=== PATIENT | female | born 1950 | race Caucasian/White ===

== ENCOUNTER → 2019-08-22 15:50 | Outpatient (CLI) | payer BC, SELFPAY ==
--- NOTE | 2019-08-22 15:57 | XR_ITS ---
PROCEDURE: XR CHEST 2V CLINICAL HISTORY: FEVER,CHILLS,COUGH COMPARISON: CXR CHEST(2 VIEWS-NOT PORTABLE) from 03/18/2016 FINDINGS: There is cardiomegaly without failure. Patchy infiltrate is in both lower lung. Left hilum is somewhat may be due overlying vascularity and may be confirmed with follow-up. No acute bony abnormalities. IMPRESSION: Bilateral lower lobe infiltrates with mild cardiomegaly Dictated by: Dirk Redmond MD 08/22/2019 16:13 Electronically signed by Dirk Redmond MD in [place] 08/22/2019 16:13
== END ==
PROVIDERS: PCP Family Medicine; Visit Provider Family Medicine
DX: R50.9 Fever, unspecified (principal); R05 Cough
CPT/HCPCS: 71046

== ENCOUNTER → 2019-09-30 16:08 | Outpatient (CLI) | payer BC, SELFPAY ==
[2019-10-01 09:00] LABS: Covid-19 Nasal PCR Sendout Lex NOT DETECTED
--- NOTE | 2019-10-01 09:20 | PC.NURSE ---
notified patient of negative COVID 19 results.
== END ==
PROVIDERS: Visit Provider Internal Medicine Adolescent Medicine
DX: Z03.818 Encounter for observation for suspected exposure to other biological agents ruled out (principal)

== ENCOUNTER 2022-04-09 10:05 | Emergency (ER) | payer MEDICARE, SELFPAY ==
[2022-04-09 10:43] VITALS: BP 128/56; PULSE 86; RESP 16; TEMP 37.6; O2SAT 95; BMI 34.7
--- NOTE | 2022-04-09 10:44 | EXP.UTC ---
Discharge Plan Disposition Patient Disposition: Home, Self-Care Condition: Good Prescriptions Prescriptions: New guaifenesin [Mucinex] 600 mg tablet extended release 12hr 600 - 1,200 mg PO BIDP PRN (Reason: Congestion) Qty: 30 0RF azithromycin [Zithromax] 250 mg tablet 250 mg PO UD DOSE PK Qty: 6 0RF Rx Instructions: Take two (2) tablets today, then one (1) tablet days #2 thru #5 benzonatate [benzonatate] 100 mg capsule 100 mg PO TIDP PRN (Reason: Cough) Qty: 30 0RF methylprednisolone 4 mg Tablets,Dose Pack 4 mg PO DIRECTED Qty: 21 0RF Referrals Follow up/Referrals: Dheeraj Cueva MD [Primary Care Provider] - See instructions Activity Restrictions/Add. Instructions Additional Instructions/Restrictions: Drink plenty of fluids. Take tylenol or ibuprofen for pain or fever. Take the medications as directed. Follow up with your regular doctor. GO TO THE ER FOR ANY WORSENING SYMPTOMS Quarantine until you know the results of your covid-19 test. Notify your school or workplace of your results and follow their instructions regarding return to work/school. Clinical Impressions Clinical Impression: Sinusitis, Exposure to 2019 novel coronavirus Instructions Patient Instructions: Sinusitis, DI for Sinusitis, Preventing the Spread of Coronavirus Discharge Instructions Discharge ED Provider: Petar Nielson [facility] General Stated complaint: fever, covid test head, congestion Time Seen by Provider: 04/09/22 10:43 History of Present Illness Provider Complaint: She states that for the past 2 days she has had worsening sinus congestion and sinus drainage. Her currently has covid-19 at home. Related Data Previous Rx's Medication Instructions Recorded azithromycin 250 mg tablet 250 mg PO UD DOSE PK #6 tabs 04/09/22 (Zithromax) benzonatate 100 mg capsule 100 mg PO TIDP PRN Cough #30 caps 04/09/22 guaifenesin 600 mg tablet, 600 - 1,200 mg PO BIDP PRN 04/09/22 extended release 12 hr (Mucinex) Congestion #30 tabs methylprednisolone 4 mg tablets in 4 mg PO DIRECTED #21 tabs 04/09/22 a dose pack Allergies Allergy/AdvReac Type Severity Reaction Status Date / Time No Known Allergies Allergy Verified 04/09/22 10:46 [facility] Social History Smoking Status: Never smoker alcohol intake: former current occupational status: disabled Travel in the last 8 weeks: None ROS Obtained: Yes All systems reviewed & no additional complaints except as documented Constitutional Constitutional: Reports chills and Reports fever(s) Eyes Eyes: Denies eye discharge ENT Ears, Nose, Mouth, and Throat: Reports as per HPI Cardiovascular Cardiovascular: Denies chest pain Respiratory Respiratory: Denies chest congestion and Reports cough Gastrointestinal Gastrointestingal: Reports nausea; Denies abdominal pain, constipation, cramping, diarrhea or vomiting Musculoskeletal Musculoskeletal: Denies arthralgias Integumentary/Breasts Skin/Breast: Denies rash Neurologic Neurologic: Denies paresthesias Physical Exam General General appearance: alert and in no apparent distress Head Head exam: atraumatic, normocephalic and normal inspection Eye Eye exam: Present normal appearance, PERRL and EOMI ENT ENT exam: Present normal exam, normal oropharynx, mucous membranes moist, TM's normal bilaterally and normal external ear exam Neck Neck exam: Present normal inspection, full ROM and trachea midline; Absent meningismus or lymphadenopathy Chest Chest inspection: Present normal inspection and symmetric chest wall rise; Absent tenderness Respiratory Respiratory exam: Present normal lung sounds bilaterally; Absent respiratory distress Cardiovascular Cardiovascular exam: Present regular rate and normal rhythm; Absent JVD Abdominal Exam Abdominal exam: Present soft and normal bowel sounds; Absent distention, tenderness or guard
[2022-04-09 11:18] VITALS: BP 128/56; PULSE 86; RESP 16; TEMP 37.6
== END 2022-04-09 11:24 | disposition home or self-care (01) ==
PROVIDERS: Emergency Provider Nurse Practitioner Family; PCP Family Medicine
DX: U07.1 COVID-19 (principal); R50.9 Fever, unspecified; R05.9 Cough, unspecified; R09.81 Nasal congestion; Z79.52 Long term (current) use of systemic steroids; Z79.899 Other long term (current) drug therapy
CPT/HCPCS: 99213; C9803; G0463; U0003; U0005

== ENCOUNTER 2024-06-10 18:48 | Emergency (ER) | payer MEDICARE, SELFPAY ==
[2024-06-10 18:50] VITALS: BP 126/66; PULSE 79; RESP 18; TEMP 36.7; O2SAT 97; BMI 34.9
--- NOTE | 2024-06-10 19:00 | ED_ITS ---
<Statement entered by Delia Flores DO - 06/10/24 21:31> I was consulted by the ARLEN, and we discussed the complexity of the problems being addressed. I approved the treatment and management plan for this patient's care in the emergency department, thus performing a substantive portion of the medical decision making. Delia Flores DO Discharge Plan Disposition Patient Disposition: Home, Self-Care Condition: Good Prescriptions Prescriptions: New ogmputzyljczazo-lccznwlej-YU [Bromfed DM] 2-30-10 mg/5 mL syrup 5 ml PO Q4H PRN (Reason: sinus symptoms) Qty: 118 0RF No Action guaifenesin [Mucinex] 600 mg tablet extended release 12hr 600 - 1,200 mg PO BIDP PRN (Reason: Congestion) Qty: 30 0RF azithromycin [Zithromax] 250 mg tablet 250 mg PO UD DOSE PK Qty: 6 0RF Rx Instructions: Take two (2) tablets today, then one (1) tablet days #2 thru #5 benzonatate [benzonatate] 100 mg capsule 100 mg PO TIDP PRN (Reason: Cough) Qty: 30 0RF methylprednisolone 4 mg Tablets,Dose Pack 4 mg PO DIRECTED Qty: 21 0RF Referrals Follow up/Referrals: Dheeraj Cueva MD [Primary Care Provider] - See instructions Activity Restrictions/Add. Instructions Additional Instructions/Restrictions: Please take Tylenol and Motrin continually for the next couple of days you can alternate them every 4 hours. I have sent Bromfed into your pharmacy to treat your symptoms of congestion and fullness. If you have no improvement return to the ER as needed. Clinical Impressions Clinical Impression: Upper respiratory infection Qualifiers: URI type: unspecified URI Qualified Code(s): J06.9 - Acute upper respiratory infection, unspecified Instructions Patient Instructions: DI for Acute Bronchitis Print Language Print Language: [place] Discharge ED Provider: Delia Flores General Adult HPI General Chief complaint: Upper Respiratory Infection Stated complaint: fever, head congestion Time Seen by Provider: 06/10/24 19:00 Mode of Arrival: Ambulatory Source of Information: Patient Limitations: No Limitations Description of Symptoms (Recalled from ER Triage Doc. by RN): c/o fever, cough, congestion, and WHITE for 3 days, states her is getting over covid History of Present Illness HPI narrative: Patient presents for fever cough and congestion for 3 days. Patient recently tested positive for COVID. She has not tested herself but wishes to have a COVID test. She denies any chest pain shortness of breath nausea vomiting diarrhea. Related Data Previous Rx's ?Medication ?Instructions ?Recorded azithromycin 250 mg tablet 250 mg PO UD DOSE PK #6 tabs 04/09/22 (Zithromax) benzonatate 100 mg capsule 100 mg PO TIDP PRN Cough #30 caps 04/09/22 guaifenesin 600 mg tablet, 600 - 1,200 mg (1 - 2 x 600 mg) PO 04/09/22 extended release 12 hr (Mucinex) BIDP PRN Congestion #30 tabs methylprednisolone 4 mg tablets in 4 mg PO DIRECTED #21 tabs 04/09/22 a dose pack wpqhnkxtlddqlwi-lmkhkbmhajjvkhx-WY 5 ml PO Q4H PRN sinus symptoms 06/10/24 2 mg-30 mg-10 mg/5 mL oral syrup #118 mL (Bromfed DM) Allergies Allergy/AdvReac Type Severity Reaction Status Date / Time No Known Allergies Allergy Verified 04/09/22 10:46 [facility] Disclaimer: The information contained in this section may have been updated after the patient was seen, as this information can be updated by other users. Social History (Updated 04/10/22 @ 22:34 by Petar Nielson APRN) Smoking Status: Never smoker alcohol intake: former current occupational status: disabled Travel in the last 8 weeks: None Have you lived/traveled outside [place] in past 30 days?: No Contact w/someone who lives/traveled outside [place] past 30 days?: No Exposure to someone with infectious disease in past 14 days?: No Do you have a fever (greater than 100.4 F or 38 C)?: Yes Have you tested positive for COVID-19: No Exposed to someone with COVID-19 in past 14 days?: No Do you have a sore throat?: No Do you have a cough?: No Do you have any weakness?: No Do you have any diarrhea?: No Are you experiencing any unusual bleeding?: No Do you have any muscle aches/pain?: No Do you have any abdominal pain?: No Are you experiencing loss of taste or smell?: No ROS Obtained: Yes Systems reviewed as appropriate & no additional complaints except as documented Physical Exam General General appearance: alert and in no apparent distress Neck Neck exam: Present lymphadenopathy Respiratory Respiratory exam: Present normal lung sounds bilaterally Cardiovascular Cardiovascular exam: Present regular rate Neurological Exam Neurological exam: Present alert and oriented X3 Medical Decision Making Medical Records Medical records reviewed: Yes I reviewed the patient's medical records. Screening: Per USPSTF and CDC recommendations, given the prevalence of disease in our region, it is our hospital?s policy to screen for HIV and viral Hepatitis for all patients aged 18 and over and those with ongoing risk factors. Henri Inquiry Pt receiving controlled substance: No Vital Signs: 06/10/24 18:50 Temperature 98.1 F Temperature Source Oral Pulse Rate [Left Radial] 79 Respiratory Rate 18 Blood Pressure [Right Arm] 126/66 Blood Pressure Mean [Right Arm] 86 02 Sat by Pulse Oximetry 97 Oxygen Delivery Method Room Air Lab Data Lab results reviewed: Yes I reviewed the patient's lab results. Lab Results 06/10/24 18:56: POC RSV Rapid Negative Orders (Tests/Meds): ED MEDICATIONS Discontinued Medications Generic Name Dose Route Start Last Admin Trade Name Grace PRN Reason Stop Dose Admin Acetaminophen 1,000 mg 06/10/24 19:08 06/10/24 19:20 Acetaminophen 500mg Tab PO 06/10/24 19:09 1,000 mg ONCE ONE Administration Ibuprofen 800 mg 06/10/24 19:08 06/10/24 19:20 Ibuprofen 400 Mg Tablet PO 06/10/24 19:09 800 mg ONCE ONE Administration ORDERS Category Date Time Status RSV Rapid Ab Screen Stat Lab 06/10/24 18:56 Completed Rapid PCR Covid and Flu A/B Stat Lab 06/10/24 18:56 Received Medical Decision Narrative: In summary patient is a 73-year-old female who presents to the emergency department for evaluation of cough congestion and fever. Patient is hemodynamically stable upon arrival, afebrile currently at 98.1. Physical exam is remarkable for boggy nasal mucosa but no rhinorrhea noted, only mildly erythematous posterior pharynx without evidence of exudate, clear breath sounds, satting at 97% on room air with no increased work of breathing or adventitious sounds noted.. Differential diagnosis includes viral or bacterial upper respiratory tract infection. Initial workup will be conducted with COVID flu and RSV swabs. Initial interventions were considered with Tylenol and Motrin however patient is currently afebrile thus deferred for now. Initial workup reviewed by me and her RSV is negative but her COVID and flu are pending. Upon repeat evaluation patient reports that she would like to go home she is not interested in the results of the COVID and flu test that she originally requested and she is tired of waiting . I did reassess her ears at her request and she has normal bilateral tympanic membranes with normal external auditory canals.. Given this patient is appropriate for discharge with access to her laboratory data on the portal and I have sent a prescription for Bromfed into her pharmacy for symptomatic treatment and strict return precautions. Critical Care Critical Care Time Critical Care Time: No
[2024-06-10 19:16] LABS: Influenza A, PCR Not Detected (NotDetected); Influenza B, PCR Not Detected (NotDetected)
[2024-06-10] MEDS: IBUPROFEN 400 MG TABLET 800 MG PO (19:20)
[2024-06-10] MEDS: ACETAMINOPHEN 500MG TAB 1000 MG PO (19:20)
[2024-06-10 19:44] LABS: RSV Rapid Ab Screen Negative (Negative)
[2024-06-10 20:34] VITALS: BP 118/74; PULSE 74; RESP 16; TEMP 36.6; O2SAT 96
[2024-06-10 20:35] LABS: Coronavirus 19, PCR Detected (NotDetected)
== END 2024-06-10 20:38 | disposition home or self-care (01) ==
PROVIDERS: Physician Assistant; Emergency Provider Emergency Medicine; PCP Family Medicine
DX: J06.9 Acute upper respiratory infection, unspecified (principal); R50.9 Fever, unspecified; R09.81 Nasal congestion; R05.9 Cough, unspecified; R51.9 Headache, unspecified; Z20.822 Contact with and (suspected) exposure to COVID-19
CPT/HCPCS: 87636; 87807; 99283

== ENCOUNTER 2024-08-12 10:56 | Outpatient (CLI) | payer MEDICARE, SELFPAY ==
[2024-08-12 11:08] LABS: Microscopic, Urine URINE MICROSCOPIC (MICROSCOPIC)
[2024-08-12 11:59] LABS: Appearance,Urine CLEAR (Clear); Bilirubin,Urine Negative (Negative); Blood, Urine Negative (Negative); Color,Urine YELLOW (Yellow); Glucose,Urine (UA) Negative (Negative); Hematocrit 33.6 % (37.0-47.0); Ketones,Urine Negative (Negative); Leukocyte Esterase,Urine Negative (Negative); Mean Corpuscular HGB Conc 32.7 g/dL (31.8-35.4); Mean Corpuscular Hemoglobin 28.9 pg (27.0-31.2); Mean Corpuscular Volume 88.2 fl (81-99); Nitrate,Urine Negative (Negative); Platelet Count 316 K/mm3 (142-424); Protein,Urine Negative (Negative); Red Blood Count 3.81 M/mm3 (4.20-5.40); Specific Gravity, Urine 1.025 (1.005-1.030); Urobilinogen,Urine 0.2 EU/dl (0.2)
[2024-08-12 12:10] LABS: Creatinine,Urine Random 125 mg/dL (Not Estab.)
[2024-08-12 12:12] LABS: Microalbumin/Creatinine Ratio 12.3
[2024-08-12 12:29] LABS: Bacteria,Urine Trace /lpf; WBC,Urine Occasional #/hpf (0-3)
[2024-08-12 13:51] LABS: Albumin Level 4.5 g/dl (3.5-5.0); Chloride 104 mmol/L (98-107); Potassium 4.9 mmoL/L (3.5-5.1); Sodium 139 mmol/L (136-145)
[2024-08-12 13:54] LABS: Anion Gap 15.9 mEq/L (5-15); Blood Urea Nitrogen 30 mg/dl (7-17); Carbon Dioxide 24 mmol/L (22.0-30.0); Estimated Glomerular Filt Rate 22 ml/min (>60); GFR (African American) 27 ML/MIN (>60)
[2024-08-12 13:55] LABS: Calcium 9.4 mg/dl (8.4-10.2); Glucose 104 mg/dl (74-100); Phosphorous 4.3 mg/dl (2.5-4.5)
== END 2024-08-12 23:59 | disposition home or self-care (01) ==
LOC: LAB 11:00
PROVIDERS: PCP Family Medicine; Visit Provider Student in an Organized Health Care Education/Training Program
DX: N17.9 Acute kidney failure, unspecified (principal)
CPT/HCPCS: 36415; 80069; 81001; 82043; 82570; 84156; 85027

== ENCOUNTER 2025-01-27 08:15 | Outpatient (CLI) | payer MEDICARE, SELFPAY ==
[2025-01-27 08:23] LABS: Microscopic, Urine URINE MICROSCOPIC (MICROSCOPIC)
[2025-01-27 08:43] LABS: Hematocrit 37.4 % (37.0-47.0); Hemoglobin 11.8 g/dL (12.2-16.2); Mean Corpuscular HGB Conc 31.6 g/dL (31.8-35.4); Mean Corpuscular Hemoglobin 27.7 pg (27.0-31.2); Mean Corpuscular Volume 87.8 fl (81-99); Nucleated Red Blood Cells % 0 %; Platelet Count 275 K/mm3 (142-424); Red Blood Count 4.26 M/mm3 (4.20-5.40); Red Cell Distribution Width-SD 41.9 fL; White Blood Count 6.2 K/mm3 (4.8-10.8)
[2025-01-27 08:46] LABS: Bilirubin,Urine Negative (Negative); Color,Urine YELLOW (Yellow); Glucose,Urine (UA) Negative (Negative); Ketones,Urine Negative (Negative); Leukocyte Esterase,Urine 1+ (Negative); PH,Urine 6.0 (5.0-8.5); Protein,Urine Negative (Negative); Specific Gravity, Urine 1.015 (1.005-1.030); Urobilinogen,Urine 0.2 EU/dl (0.2)
[2025-01-27 09:10] LABS: Albumin Level 4.5 g/dl (3.5-5.0); Anion Gap 13.5 mEq/L (5-15); Blood Urea Nitrogen 28 mg/dl (7-17); Calcium 9.6 mg/dl (8.4-10.2); Carbon Dioxide 23 mmol/L (22.0-30.0); Chloride 107 mmol/L (98-107); Creatinine,Serum 1.70 mg/dl (0.52-1.04); Estimated Glomerular Filt Rate 30 ml/min (>60); GFR (African American) 36 ML/MIN (>60); Glucose 96 mg/dl (74-100); Phosphorous 4.3 mg/dl (2.5-4.5); Potassium 4.5 mmoL/L (3.5-5.1); Sodium 139 mmol/L (136-145)
[2025-01-27 09:27] LABS: 25-OH Vitamin D, Total 38.3 ng/mL (30-100)
== END 2025-01-27 23:59 | disposition home or self-care (01) ==
LOC: LAB 08:17
PROVIDERS: PCP Family Medicine; Visit Provider Student in an Organized Health Care Education/Training Program
DX: N18.32 Chronic kidney disease, stage 3b (principal)
CPT/HCPCS: 36415; 80069; 81001; 82306; 82570; 83970; 84156; 85027; 87086